=== PATIENT | male | born 1960 | race Caucasian/White ===

== ENCOUNTER 2018-03-18 06:18 | Day surgery (SDC) | payer BC, SELFPAY ==
[2018-03-18] VITALS (7 sets, daily range): BP systolic 108–126; BP diastolic 72–91; PULSE 60–93; RESP 16; TEMP 36.4–36.6; O2SAT 95–98; BMI 29.7
--- NOTE | 2018-03-18 07:57 | PCM.HP.STD ---
Problem List (1) Family history of colon cancer in father Status: Acute History of Present Illness Date of Admission: 03/18/18 The patient is a 58 year old M who presents for colonoscopy. I performed a colonoscopy on him more than 5 years ago. He has a family history (father) of colon cancer. Past Medical History Allergies diclofenac sodium [From Voltaren] Allergy (Verified 03/16/18 10:16) Rash lisinopril Adverse Reaction (Verified 03/16/18 10:16) COUGH Home Medications: Ambulatory Orders Medication Instructions Recorded Aspirin [Aspirin, Baby] 81 mg PO DAILY@0800 01/29/18 Cholecalciferol (Vitamin D3) 1,000 unit PO DAILY 01/29/18 [Vitamin D3] Dicyclomine HCl [Bentyl] 10 mg PO PRN PRN 01/29/18 Meloxicam 15 mg PO DAILY PRN PRN 01/29/18 Multivitamin [Daily Multiple 1 each PO DAILY 01/29/18 Vitamin] [place]-3 Fatty Acids/Fish Oil 1 each PO DAILY 01/29/18 [[place] 3 Fish Oil Softgel] Pantoprazole Sodium [Protonix] 40 mg PO DAILY 01/29/18 Pravastatin [Pravachol] 10 mg PO DAILY 01/29/18 Tizanidine HCl 4 mg PO DAILY PRN PRN 01/29/18 Smoking Status: Never smoker - *Family History Paternal History Items: Cancer - Father had colon cancer Review of Systems Cardiovascular: Denies: Chest Pain, Chest Pressure, Chest Tightness, Palpitations Respiratory: Denies: Cough, Hemoptysis, Shortness of breath at rest, Shortness of breath upon exertion, Wheezing Gastrointestinal: Denies: Abdominal Pain, Constipation, Diarrhea, Hematemesis, Nausea, Melena, Vomiting VTE Information - Inpt Only VTE Present on Admission: No VTE Mechan Device Prophylaxis: None VTE Pharm Prophylaxis ordered?: No Reason prophylaxis not ordered:: Treatment Not Indicated Patient Problems: Active and Suspected Problems Family history of colon cancer in father (Acute) - Physical Exam Lungs: Clear to auscultation Cardiovascular: Regular rate, Regular Rhythm, No murmurs Abdomen: Bowel Sounds Present, Soft, Non Tender, Non-Distended Vital Signs Temp Pulse Resp BP Pulse Ox 97.5 F L 84 16 126/91 H 98 03/18/18 06:34 03/18/18 06:34 03/18/18 06:34 03/18/18 06:34 03/18/18 06:34 Oxygen Delivery Method Room Air Weight: 207 lb 10.807 oz Body Mass Index (BMI) 29.7 Assessment/Plan All Active Problems Family history of colon cancer in father (Acute) Family perform a colonoscopy.
--- NOTE | 2018-03-18 09:20 | OP.ENDO_ITS ---
Patient Name: Marc Serrano Procedure Date: 03/18/2018 7:30 AM Date of : 1960 Age: 58 Procedure: Colonoscopy Indications: Colon cancer screening in patient at increased risk: Colorectal cancer in father Patient Profile: Last Colonoscopy: more than 5 years ago. Providers: Dre Carirllo MD Referring MD: Connie Estrada Medicines: See the Anesthesia note for documentation of the administered medications Complications: No immediate complications. Procedure: Pre-Anesthesia Assessment: - Prior to the procedure, a History and Physical was performed, and patient medications and allergies were reviewed. The patient's tolerance of previous anesthesia was also reviewed. The risks and benefits of the procedure and the sedation options and risks were discussed with the patient. All questions were answered, and informed consent was obtained. Prior Anticoagulants: The patient has taken aspirin, last dose was 5 days prior to procedure. ASA Grade Assessment: III - A patient with severe systemic disease. After reviewing the risks and benefits, the patient was deemed in satisfactory condition to undergo the procedure. After I obtained informed consent, the scope was passed under direct vision. Throughout the procedure, the patient's blood pressure, pulse, and oxygen saturations were monitored continuously. The adult colonoscope was introduced through the anus and advanced to the cecum, identified by appendiceal orifice and ileocecal valve. The colonoscopy was performed without difficulty. The patient tolerated the procedure well. The quality of the bowel preparation was good. Scope In: 7:40:32 AM Scope Withdrawal Time 0 hours 6 minutes 45 seconds Scope Out: 7:51:05 AM Total Procedure Duration Time 0 hours 10 minutes 33 seconds Findings: The perianal and digital rectal examinations were normal. The exam was otherwise without abnormality on direct and retroflexion views. Impression: - The examination was otherwise normal on direct and retroflexion views. - No specimens collected. Recommendation: - Discharge patient to home. - Resume previous diet. - Continue present medications. - Repeat colonoscopy in 5 years for surveillance. - Return to primary care physician PRN. Procedure Code(s): --- Professional --- 16588, Colonoscopy, flexible; diagnostic, including collection of specimen(s) by brushing or washing, when performed (separate procedure) Diagnosis Code(s): --- Professional --- Z80.0, Family history of malignant neoplasm of digestive organs CPT copyright 2017 [employer]. All rights reserved. The codes documented in this report are preliminary and upon visual coordinator review may be revised to meet current compliance requirements. MD Dre Denny MD 03/18/2018 9:20:19 AM This report has been signed electronically. Number of Addenda: 0 Note Initiated On: 03/18/2018 7:30 AM
--- NOTE | 2018-03-18 13:35 | OP.ENDO_ITS ---
Patient Name: Marc Serrano Procedure Date: 03/18/2018 7:30 AM Date of : 1960 Age: 58 Procedure: Colonoscopy Indications: Colon cancer screening in patient at increased risk: Colorectal cancer in father Patient Profile: Last Colonoscopy: more than 5 years ago. Providers: Dre Carrillo MD Referring MD: Connie Estrada Medicines: See the Anesthesia note for documentation of the administered medications Complications: No immediate complications. Procedure: Pre-Anesthesia Assessment: - Prior to the procedure, a History and Physical was performed, and patient medications and allergies were reviewed. The patient's tolerance of previous anesthesia was also reviewed. The risks and benefits of the procedure and the sedation options and risks were discussed with the patient. All questions were answered, and informed consent was obtained. Prior Anticoagulants: The patient has taken aspirin, last dose was 5 days prior to procedure. ASA Grade Assessment: III - A patient with severe systemic disease. After reviewing the risks and benefits, the patient was deemed in satisfactory condition to undergo the procedure. After I obtained informed consent, the scope was passed under direct vision. Throughout the procedure, the patient's blood pressure, pulse, and oxygen saturations were monitored continuously. The adult colonoscope was introduced through the anus and advanced to the cecum, identified by appendiceal orifice and ileocecal valve. The colonoscopy was performed without difficulty. The patient tolerated the procedure well. The quality of the bowel preparation was good. Scope In: 7:40:32 AM Scope Withdrawal Time 0 hours 6 minutes 45 seconds Scope Out: 7:51:05 AM Total Procedure Duration Time 0 hours 10 minutes 33 seconds Findings: The perianal and digital rectal examinations were normal. The exam was otherwise without abnormality on direct and retroflexion views. Impression: - The examination was otherwise normal on direct and retroflexion views. - No specimens collected. Recommendation: - Discharge patient to home. - Resume previous diet. - Continue present medications. - Repeat colonoscopy in 5 years for surveillance. - Return to primary care physician PRN. Procedure Code(s): --- Professional --- 23595, Colonoscopy, flexible; diagnostic, including collection of specimen(s) by brushing or washing, when performed (separate procedure) Diagnosis Code(s): --- Professional --- Z80.0, Family history of malignant neoplasm of digestive organs CPT copyright 2017 [employer]. All rights reserved. The codes documented in this report are preliminary and upon ocean biologist review may be revised to meet current compliance requirements. MD Dre Denny MD 03/18/2018 9:20:19 AM This report has been signed electronically. Number of Addenda: 0 Note Initiated On: 03/18/2018 7:30 AM
== END 2018-03-18 08:45 | disposition home or self-care (01) ==
LOC: EN 06:19 → AC 06:21
PROVIDERS: Family Provider Internal Medicine; PCP Internal Medicine; Visit Provider Surgery
PROC: 0DJD8ZZ Inspection of Lower Intestinal Tract, Via Natural or Artificial Opening Endoscopic (ICD-10-PCS; CPT 45378; principal; 2018-03-18 07:25)
DX: Z12.11 Encounter for screening for malignant neoplasm of colon (principal); Z80.0 Family history of malignant neoplasm of digestive organs; K21.9 Gastro-esophageal reflux disease without esophagitis; E78.00 Pure hypercholesterolemia, unspecified; G47.30 Sleep apnea, unspecified; Z79.82 Long term (current) use of aspirin; Z79.899 Other long term (current) drug therapy
CPT/HCPCS: 45378; J7120

== ENCOUNTER 2018-04-06 08:23 | Emergency (ER) | payer BC, SELFPAY ==
[2018-04-06 08:25] VITALS: BP 166/108; PULSE 68; RESP 15; TEMP 36.6; O2SAT 100; BMI 33.1
--- NOTE | 2018-04-06 08:31 | EKG12_ITS ---
Test Reason : Blood Pressure : / mmHG Vent. Rate : 069 BPM Atrial Rate : 069 BPM P-R Int : 170 ms QRS Dur : 100 ms QT Int : 404 ms P-R-T Axes : 039 018 026 degrees QTc Int : 432 ms Normal sinus rhythm Normal ECG Confirmed by BRIDGETTE HATCH, TESSA ([id number]), editor magazine PERLA LINARES ([id number]) on 04/09/2018 1:43:51 PM Referred By: JOVITA Confirmed By:TESSA ANGELES MD
--- NOTE | 2018-04-06 08:31 | ED.VISSUMM ---
- ER Visit Summary Date of Service: 04/06/18 Chief Complaint: Chest pain History of Present Illness: The patient is a 58 M with an hour history of chest pain that started during a meeting at work. Is on the left side of his chest, worse with movement twisting and taking a deep breath. No nausea vomiting or diaphoresis. No fever or chills. No cough. No shortness of breath. Pain is described as sharp and stabbing however now it is minimal, it was mild at first also. Physical Examination: Tran does not appear in acute distress. Moist mucous membranes, no obvious facial deformity No C-spine tenderness supple neck. Regular rate and rhythm without any obvious murmurs. I can reproduce his chest wall pain on palpation but mostly on moving his arm towards the back, this movement clearly reproduces all his pain. Clear lungs bilaterally speaking in full sentences without any obvious respiratory distress Abdomen soft and nontender no guarding or rebound Moves all extremities without any difficulty or pain. Skin does not show any obvious rashes or lesions, no trauma. Alert oriented ?3 with no gross focal deficit Test Results: Patient has a normal EKG, normal sinus rhythm without tachycardia. Chest x-ray and blood work are unremarkable. Emergency Department Course and Treatment: Patient has a heart score of 2 and a KRISTINA score of 0, he is low risk for adverse cardiac event in the next 30 days he is told to follow-up with PCP in the next week. He is reassured. He has no PE risk factors. He appears well. He was initially hypertensive which slightly improved he is told to follow-up with the PCP for blood pressure management, he told me he does not take antihypertensives, however because of his hypertension I did include this in his risk factor classification on the heart score, again it is still low. Disposition: Discharged in good condition Impression: Chest Pain This note was generated with [employer] dictation software. It may contain incorrect words, spelling, and punctuation that were not noted in review of the chart prior to signing ED Disposition - Plan for ED Patient: Disposition: Home or Assisted Living Chief Complaint: Chest Pain Instructions: ED Chest Pain Atypical Unkn Cause, ED Strain Chest Wall Ch Referrals: Connie Estrada MD [Primary Care Provider] - 3-5 Days
--- NOTE | 2018-04-06 08:38 | RAD_ITS ---
STUDY: X-RAY CHEST REASON FOR EXAM: Male, 58 years old. Chest pain. TECHNIQUE: Single AP portable view of the chest. COMPARISON: Prior comparison studies are not available for review at this time. FINDINGS: Cardiac monitoring leads are present. The lungs are expanded. There is bilateral basilar subsegmental atelectasis. There is no demonstrated pleural abnormality. There is borderline cardiomegaly. Normal mediastinum and obdulia. Normal visualized pulmonary arteries. There is atherosclerotic tortuosity of the aortic arch and descending thoracic aorta. Normal visualized thoracic spine. There appears to be an old fracture of the left clavicle. There is no demonstrated abnormality of the visualized soft tissue structures of the upper abdomen. RAD/Chest 1 View (Portable) IMPRESSION: Bilateral basilar subsegmental atelectasis. Electronically Signed: Trinity Duong MD at 8:58 EDT , Service support ,
[2018-04-06 08:42] VITALS: O2SAT 98
[2018-04-06] MEDS: Aspirin 81 MG TAB.CHEW 324 MG PO (08:43)
[2018-04-06 08:50] LABS: Absolute Lymphocyte Count 1.41 X10^3/ul (0.83-4.51); Absolute Neutrophil Count 3.1 X10^3/uL (2.0-7.7); Basophil# 0.04 X10^3/uL; Basophil% 0.8 % (0-1); Eosinophil# 0.12 X10^3/uL; Eosinophils% 2.4 % (0-5); Hematocrit 41.6 % (40-54); Hemoglobin 13.6 g/dl (13.0-16.5); Lymphocyte # 1.41 X10^3/ul (4.0); Lymphocyte % 27.9 % (19-41); Mean Corp Hgb Conc 32.7 g/gl (32-36); Mean Corpuscular Hgb 27.1 pg (27.0-32.0); Mean Platelet Vol. 10.7 fl (6.2-12.0); Monocyte# 0.38 X10^3/uL; Monocyte% 7.5 % (0-10); Neutrophil % 61.2 % (47-70); POSITIVE COUNT NO; POSITIVE DIFFERENTIAL NO; POSITIVE MORPHOLOGY NO; Platelet Count 258 K/mm3 (150-450); RBC Distribution Width CV 13.8 % (11.6-14.6); RBC Distribution Width SD 41.6 fl (35.1-43.9); Red Blood Count 5.01 M/mm3 (4.6-6.2); White Blood Count 5.1 K/mm3 (4.4-11.0)
[2018-04-06 09:04] LABS: Anion Gap 8 (5-15); BUN 17 mg/dL (7-18); BUN/Creat Ratio 15.9 RATIO (10-20); Calcium,Total 8.6 mg/dL (8.5-10.1); Chloride 107 mmol/L (98-107); Creatinine, Serum 1.07 mg/dL (0.70-1.30); EST Glomerular Filtration Rate 76 mL/min (>60); Est Glom Filt Rate - Afr Amer 92 mL/min (>60); Estimated Creatinine Clearance 78.65 ml/min; Glucose 108 mg/dL (74-106); Potassium 3.5 mmol/L (3.5-5.1); Sodium Level 142 mmol/L (136-145)
[2018-04-06 09:31] VITALS: BP 145/98; PULSE 62; RESP 15; O2SAT 98
== END 2018-04-06 09:34 | disposition home or self-care (01) ==
PROVIDERS: Emergency Provider Emergency Medicine; Family Provider Internal Medicine; PCP Internal Medicine
DX: R07.89 Other chest pain (principal); I10 Essential (primary) hypertension; K21.9 Gastro-esophageal reflux disease without esophagitis; Z79.82 Long term (current) use of aspirin; Z79.899 Other long term (current) drug therapy
CPT/HCPCS: 71045; 80048; 84484; 85025; 93005; 99285; A4216

== ENCOUNTER → 2020-04-05 14:23 | Outpatient (CLI) | payer BC, SELFPAY ==
--- NOTE | 2020-04-05 15:48 | NEURO ---
NCS and/or EMG Patient Report Ordering Doctor: Yaw Eli DATE OF SERVICE: 04/05/20 Marc Serrano presents for electrodiagnostic testing of the upper limbs. He reports numbness and tingling in digits 1 through 4 bilaterally. Electrodiagnostic findings: Median motor nerve demonstrates prolonged distal latency with normal amplitude bilaterally. There is reduced median motor conduction velocity bilaterally. Ulnar motor response within normal limits bilaterally. Prolonged median sensory latency at the wrist bilaterally. Prolonged right median palmar latency. Prolonged median F wave bilaterally. On needle EMG, all muscles tested in the upper limb showed no evidence of denervation with normal motor unit action potentials. Electrodiagnostic impression: This is an abnormal study in the upper limbs. 1. electrodiagnostic findings demonstrate bilateral median mononeuropathy. This is consistent with a moderate bilateral carpal tunnel syndrome. 2. No electrodiagnostic evidence noted for cervical radiculopathy. If there are any further questions, please do not hesitate to contact me
== END ==
PROVIDERS: PCP Internal Medicine; Referring Provider Orthopaedic Surgery; Visit Provider Orthopaedic Surgery
DX: G56.23 Lesion of ulnar nerve, bilateral upper limbs (principal)
CPT/HCPCS: 95886; 95913